=== PATIENT | male | born 1955 | race Two or more races ===

== ENCOUNTER 2022-10-04 19:53 | Emergency (ER) | payer OTHER ==
[~2022-10-04] VITALS: Ht 172.7 cm; Wt 108.9 kg
[~2022-10-04 19:53] MED LIST: DIOVAN320 MG; HUMALOG MIX 75/23 M1; METFORMIN HCL500 MG
[2022-10-04] MEDS ORDERED: JARDIANCE25 MG PO (20:06)
[2022-10-04] MEDS ORDERED: TRULICITY0.75 MG/0. SQ (20:06)
== END 2022-10-04 22:40 | disposition home or self-care (01) ==
LOC: ER 19:53
DX: R05.9 Cough, unspecified (principal); Z20.822 Contact with and (suspected) exposure to COVID-19